=== PATIENT | female | born 1950 | race Caucasian/White ===

== ENCOUNTER 2019-04-18 06:08 | Day surgery (SDC) | payer MEDICARE, BC ==
[2019-04-18] MEDS ORDERED: Sodium Chloride 0.9% 10 ML Syringe FLUSH PRN (06:15)
[2019-04-18] MEDS ORDERED: Lactated Ringers 1,000 ML IV SCH (06:15)
[2019-04-18] MEDS ORDERED: Gatifloxacin 0.5% Ophth Soln 2.5 ML Bot EYELF SCH (06:15)
[2019-04-18] MEDS: Phenylephrine 10% Ophth Soln 5 ML Bot EYELF SCH ×3 (06:32→07:08)
[2019-04-18] MEDS: Cyclopentolate 1% Opth Soln 2 ML Bottle EYELF SCH ×3 (06:37→07:26)
[2019-04-18] MEDS ORDERED: Carbachol 0.01% Intraocular 1.5 ML Vial EYELF ONE (08:49)
[2019-04-18] MEDS ORDERED: Water For Irrigation,Sterile 1,500 ML Container IRR ONE (08:49)
[2019-04-18] MEDS ORDERED: Balanced Salt Solution Ophth Irrig 15 ML Bottle EYELF ONE (08:49)
[2019-04-18] MEDS ORDERED: EPINEPHrine 1 MG/ML SDV ONE (08:49)
[2019-04-18] MEDS ORDERED: Balanced Salt Solution Plus Ophth Irrig 500 ML Bottle IOCULAR ONE (08:49)
[2019-04-18] MEDS ORDERED: Lidocaine 2% with EPINEPHrine 1:100,000 20 ML MDV INJECT ONE (08:50)
[2019-04-18] MEDS ORDERED: Dexamethasone/Neomycin/Polymyxin B Ophth Oint 3.5 GM Tube EYELF ONE (08:50)
[2019-04-18] MEDS ORDERED: Tetracaine HCl/PF 0.5% 4 ML Bottle EYEBOTH ONE (08:51)
[2019-04-18] MEDS ORDERED: Hyaluronate Sodium 1% 0.85 ML Syringe IOCULAR ONE (08:51)
[2019-04-18] MEDS ORDERED: Lidocaine 1% 10 ML MDV INJECT ONE (08:51)
--- NOTE | 2019-04-18 15:10 | OR ---
DATE OF SURGERY: 04/18/2019 SURGEON: Ulises Pereyra MD PREOPERATIVE DIAGNOSIS: Cataract, left eye. POSTOPERATIVE DIAGNOSIS: Cataract, left eye. OPERATION PERFORMED: Phacoemulsification with posterior chamber lens insertion, left eye. HISTORY: The patient presents at this time with increasing amount of difficulty seeing to use the left eye as she drives at night. The left eye has a vision of 20/50. The left lens has a 2 to 3+ nuclear sclerosis, a 2+ cortical change and a few vacuoles. This eye has a combined cataract and a cataract of aging. FINDINGS: The patient was taken to the operating room where appropriate anesthesia, sedation and monitoring were provided. A retrobulbar block was given on the left side. The eye was massaged and was found to be appropriately soft. The eye and eyelids were then prepped and draped in the usual sterile manner. A lid speculum was placed. A micro sharp blade was used to enter the anterior chamber inside the limbus inferior-temporally. Xylocaine was irrigated into the eye at this site. Healon was irrigated into the eye through this site. Then using a 2.85 mm corneal blade an entry was made into the anterior chamber just inside the limbus temporally. Healon was again irrigated into the eye. Then using a cystitome, the anterior capsulorrhexis was created. The lens nucleus was hydrodissected using a 27 gauge cannula and balanced salt solution. The phacoemulsification unit was introduced through the temporal site and the Judd spatula through the inferior temporal site. In so doing, the lens nucleus was phacoemulsified. The cortical fragments of the lens were removed using the irrigation aspiration unit. The posterior capsule was polished. Healon was irrigated into the eye. The posterior chamber lens was inserted and rotated into position inside the capsular bag. The Healon was irrigated out of the eye. Miostat was irrigated into the eye and the pupil rounded nicely. A single interrupted 10-0 Nylon suture was placed through the temporal corneal incision site. Balanced salt solution was irrigated into the eye. The wound was tested and found to be tight. Maxitrol ointment was placed into the patient's left eye. The eyelids were closed and an eye patch and duke shield were placed. The patient left the operating room in good condition. /[id number]/MODL
== END 2019-04-18 09:36 | disposition home or self-care (01) ==
LOC: KA.SDS 06:08
PROVIDERS: ATTEND Ophthalmology
DX: H26.9 Unspecified cataract (principal); R05 Cough
CPT/HCPCS: 66984; A9270; C1780; J0171; J2001; J7120; 00142

== ENCOUNTER 2019-05-23 06:07 | Day surgery (SDC) | payer MEDICARE, BC ==
[2019-05-23] MEDS ORDERED: Sodium Chloride 0.9% 10 ML Syringe FLUSH PRN (06:15)
[2019-05-23] MEDS ORDERED: Lactated Ringers 1,000 ML IV SCH (06:15)
[2019-05-23] MEDS ORDERED: Gatifloxacin 0.5% Ophth Soln 2.5 ML Bot EYERT SCH (06:15)
[2019-05-23] MEDS: Phenylephrine 10% Ophth Soln 5 ML Bot EYERT SCH ×3 (06:36→07:29)
[2019-05-23] MEDS: Cyclopentolate 1% Opth Soln 2 ML Bottle EYERT SCH ×3 (06:45→07:40)
[2019-05-23] MEDS ORDERED: Water For Irrigation,Sterile 1,500 ML Container IRR ONE (09:16)
[2019-05-23] MEDS ORDERED: Balanced Salt Solution Ophth Irrig 15 ML Bottle EYERT ONE (09:16)
[2019-05-23] MEDS ORDERED: Balanced Salt Solution Plus Ophth Irrig 500 ML Bottle IOCULAR ONE (09:16)
[2019-05-23] MEDS ORDERED: Lidocaine 2% with EPINEPHrine 1:100,000 20 ML MDV INJECT ONE (09:17)
[2019-05-23] MEDS ORDERED: Lidocaine 1% 10 ML MDV INJECT ONE (09:17)
[2019-05-23] MEDS ORDERED: Dexamethasone/Neomycin/Polymyxin B Ophth Oint 3.5 GM Tube EYERT ONE (09:17)
[2019-05-23] MEDS ORDERED: Carbachol 0.01% Intraocular 1.5 ML Vial EYERT ONE (09:17)
[2019-05-23] MEDS ORDERED: EPINEPHrine 1 MG/1 ML Amp ONE (09:18)
[2019-05-23] MEDS ORDERED: Hyaluronate Sodium 1% 0.85 ML Syringe IOCULAR ONE (09:18)
[2019-05-23] MEDS ORDERED: Tetracaine HCl/PF 0.5% 4 ML Bottle EYEBOTH ONE (09:18)
--- NOTE | 2019-05-23 16:04 | OR ---
DATE OF SURGERY: 05/23/2019 SURGEON: Ulises Pereyra MD PREOPERATIVE DIAGNOSIS: Cataract, right eye. POSTOPERATIVE DIAGNOSIS: Cataract, right eye. OPERATION PERFORMED: Phacoemulsification with posterior chamber lens insertion, right eye. HISTORY: The patient presents at this time with an increasing amount of difficulty seeing to drive at night. Vision for the right eye is 20/50. The right lens has a 2 to 3+ nuclear sclerosis, a 2+ cortical change, and there are a few vacuoles present. This eye has a combined cataract and a cataract of aging. FINDINGS: The patient was taken to the operating room where appropriate anesthesia, sedation and monitoring were provided. A retrobulbar block was given on the right side. The eye was massaged and was found to be appropriately soft. The eye and eyelids were then prepped and draped in the usual sterile manner. A lid speculum was placed. A micro sharp blade was used to enter the anterior chamber inside the limbus superior-temporally. Xylocaine was irrigated into the eye at this site. Healon was irrigated into the eye through this site. Then using a 2.85 mm corneal blade an entry was made into the anterior chamber just inside the limbus temporally. Healon was again irrigated into the eye. Then using a cystitome, the anterior capsulorrhexis was created. The lens nucleus was hydrodissected using a 27 gauge cannula and balanced salt solution. The phacoemulsification unit was introduced through the temporal site and the Judd spatula through the superior temporal site. In so doing, the lens nucleus was phacoemulsified. The cortical fragments of the lens were removed using the irrigation aspiration unit. The posterior capsule was polished. Healon was irrigated into the eye. The posterior chamber lens was inserted and rotated into position inside the capsular bag. The Healon was irrigated out of the eye. Miostat was irrigated into the eye and the pupil rounded nicely. A single interrupted 10-0 nylon suture was placed through the temporal corneal incision site. Balanced salt solution was irrigated into the eye. The wound was tested and found to be tight. Maxitrol ointment was placed into the patient's right eye. The eyelids were closed and an eye patch and duke shield were placed. The patient left the operating room in good condition. /[id number]/MODL
== END 2019-05-23 10:20 | disposition home or self-care (01) ==
LOC: KA.SDS 06:07
PROVIDERS: ATTEND Ophthalmology
DX: H25.811 Combined forms of age-related cataract, right eye (principal); M81.0 Age-related osteoporosis without current pathological fracture; M19.90 Unspecified osteoarthritis, unspecified site; Z79.52 Long term (current) use of systemic steroids; Z79.899 Other long term (current) drug therapy
CPT/HCPCS: 00142; 66984; A9270; J0171; J2001; J7120; V2632